=== PATIENT | female | born 1970 | race Two or more races ===

== ENCOUNTER 2022-03-10 12:07 | Emergency (ER) | payer MEDICAID, OTHER ==
[~2022-03-10] VITALS: Ht 160 cm; Wt 78.0 kg
[2022-03-10 12:21] VITALS: BP 150/99
[2022-03-10] MEDS ORDERED: NAPR-1192 PO (13:45)
== END 2022-03-10 14:28 | disposition home or self-care (01) ==
LOC: ER 12:15
DX: M25.562 Pain in left knee (principal); G43.909 Migraine, unspecified, not intractable, without status migrainosus
CPT/HCPCS: 73564-TC